=== PATIENT | female | born 1950 | race Caucasian/White ===

== ENCOUNTER 2020-09-01 19:42 | Inpatient (IN) ==
[2020-09-01] MEDS ORDERED: dexAMETHasone**PF** 10 MG/ML VIAL IV ONE (20:17)
[2020-09-01] MEDS ORDERED: ACETAMINOPHEN 500 MG TAB PO STA (20:17)
[2020-09-01] MEDS ORDERED: ALBUTEROL HFA 8 GM INHALER INH ONE (20:20)
[2020-09-01 20:38] LABS: Hematocrit (blood only) 38.3 % (37-47); Hemoglobin 13.2 g/dL (12.0-16.0); Immature Granulocytes # (auto) 0.01 K/uL (0.00-0.02); Immature Granulocytes % (auto) 0.3 %; Lymphocytes # (auto) 0.72 K/uL (1.2-3.4); Mean Corpuscular Hgb Conc 34.5 g/dL (32-36); Mean Corpuscular Volume 92.7 fL (80-100); Mean Platelet Volume 9.1 fL (7.4-10.4); Monocytes # (auto) 0.17 K/uL (0.11-0.59); Monocytes % (auto) 5.7 %; Platelet Count 176 K/uL (130-400); RDW Coefficient of Variation 14.1 % (11.5-14.5); Red Blood Count 4.13 M/uL (4.2-5.4)
[2020-09-01] MEDS ORDERED: KETOROLAC TROMETHAMINE 15 MG/ML VIAL IV STA (20:43)
[2020-09-01] MEDS ORDERED: SODIUM CHLORIDE 0.9% 1000ML 500 ML IV ONE (20:43)
--- NOTE | 2020-09-01 20:49 | Emergency Department Note ---
Impression & Plan Hypoxia, Fever, COVID-19, Pneumonia ED Provider Note NAME: REID OMER AGE: 69 SEX: F : 1950 ARRIVES VIA: Walk-In INFORMANT: [Patient] ED PROVIDER(S): [Momo Link MD] CHIEF COMPLAINT: Flulike symptoms. HISTORY OF PRESENT ILLNESS: The patient is a 69-year-old female who has had flulike symptoms for about a week and a half. Patient has had a headache that she rates as an 8/10. She has had some chills and has felt fatigued. As of late, she has developed some body aches. She has noticed a fever. Patient had Covid testing 3 days ago and was told she was positive. Today, her O2 saturation was noted to be low at home at around 88%. She was not short of breath. She came to be checked because of the low pulse ox value. Patient does have a history of asthma, she states that she is otherwise healthy. Her and son also have Covid. There has been no diarrhea. She states she did vomit one time with this illness but otherwise has been able to keep in fluids and food. She does not have any abdominal pain. She states that she would prefer to go home, she does not want to be admitted to the hospital. REVIEW OF SYSTEMS: See HPI for pertinent positives and negatives. A total of ten systems were reviewed and were otherwise negative. PMHx/PSHx: See Below SOCIAL HISTORY: See Below. PHYSICAL EXAM: GENERAL: Patient is in no acute distress. HEENT: No acute trauma, normocephalic atraumatic, mucous membranes moist, no nasal congestion, no scleral icterus. NECK: No stridor, no adenopathy, no meningismus, trachea is midline. LUNGS: Patient has crackles to both lower lungs especially on the left. There is no wheezing, no respiratory distress. She speaks in full sentences. HEART: Without murmurs gallops or rubs, regular rate and rhythm. ABDOMEN: Soft, nontender, bowel sounds positive, no hernias, no peritonitis. EXTREMITIES: No cyanosis or edema, full range of motion of all the joints without pain or difficulty, no signs for acute trauma. NEUROLOGIC: Oriented x 3, no acute motor or sensory deficits, no focal weakness. SKIN: No rash, no jaundice, no diaphoresis. DIFFERENTIAL DIAGNOSIS: Sepsis, UTI, pneumonia, metabolic abnormality, Covid pneumonia, electrolyte abnormalities, cardiac sources, cellulitis, UTI, bacteremia, intracerebral event, toxicologic etiology, neurologic event, as well as other pathologies. EMERGENCY DEPARTMENT COURSE/PROCEDURES: ECG: Indication was shortness of breath. The ECG shows a normal sinus rhythm with a rate of 90. There is a right bundle branch block. The QTc is 455. There is no ST elevation, no PVCs. Continuous Cardiac Monitoring: An order was placed for continuous cardiac monitoring. The monitor shows a rate of 87 with normal sinus rhythm. MEDICAL DECISION MAKING: There is a lower white blood cell count consistent with a viral infection. There is a normal hemoglobin and platelet count. No coagulopathy. No significant electrolyte abnormality or kidney failure. No worrisome liver enzyme elevation. ECG shows a sinus rhythm, no acute ischemia. Cardiac enzyme testing x1 is not consistent with acute cardiac injury. Chest film shows bilateral infiltrates consistent with Covid pneumonia. On exam, the patient did have crackles bilaterally. Her O2 saturation was low. At home, her saturation had been as low as 88%. The patient received IV saline, 500 cc. She was given IV Decadron, albuterol via MDI. She was given oral Tylenol and IV Toradol. The patient has a Covid pneumonia. She was hypoxic at home. She has worsened with her situation in just the last few days. I do think she qualifies for hospitalization. I did speak to the patient, I spoke with her family as well over the phone. I spoke with case management. The on-call hospitalist was consulted. Past Med/Surg History Medical History Asthma Social History Smoking Status: Never smoker Preferred Language: Hong Konger Feels Safe at Home: Yes Allergies Allergies Allergy/AdvReac Type Severity Reaction Status Date / Time No Known Allergies Allergy Unverified 09/01/20 20:53 Home Meds Home Medications Medication Instructions Recorded Confirmed acetaminophen [Tylenol] 650 mg PO QID PRN 09/01/20 09/01/20 atorvastatin 20 mg PO 3XWK 09/01/20 09/01/20 levothyroxine 50 mcg PO DAILY 09/01/20 09/01/20 paroxetine HCl 10 mg PO HS 09/01/20 09/01/20 Results & Data (ED) Vital Signs Vital Signs - 24 hr 09/01/20 19:53 09/01/20 20:14 09/01/20 20:20 Temperature 38.6 C H Temperature Source Temporal Artery Scan Pulse Rate 99 H 89 88 Pulse Rate from SpO2 Sensor 90 88 Respiratory Rate 20 19 23 Respiratory Effort / Characteristics Respiratory Depth Normal Blood Pressure 135/76 129/80 Blood Pressure Mean 95 96 Pulse Oximetry 92 93 93 Oxygen Delivery Method Room Air Sepsis New/Unexplained Change in Mental Status N/A Sepsis Action Taken by Nursing No Action Required 09/01/20 20:30 09/01/20 20:31 09/01/20 20:38 Temperature 38.6 C H Temperature Source Temporal Artery Scan Pulse Rate 90 87 Pulse Rate from SpO2 Sensor 90 88 Respiratory Rate 18 16 16 Respiratory Effort / Characteristics Non-Labored Respiratory Depth Normal Blood Pressure 124/77 Blood Pressure Mean 92 Pulse Oximetry 93 93 93 Oxygen Delivery Method Room Air Sepsis New/Unexplained Change in Mental Status Sepsis Action Taken by Assisted Medications Current Medication List: was personally reviewed by me Laboratory Data Attestation: I reviewed the patient's lab results. Result diagrams: 09/01/20 Unknown 09/01/20 Unknown Lab Results 09/01/20 09/01/20 09/01/20 Range/Units Unknown Unknown Unknown WBC 3.00 L (4.8-10.8) K/uL RBC 4.13 L (4.2-5.4) M/uL Hgb 13.2 (12.0-16.0) g/dL Hct 38.3 (37-47) % MCV 92.7 (80-100) fL MCH 32.0 (25-34) pg MCHC 34.5 (32-36) g/dL RDW Std Deviation 48.0 H (36.4-46.3) fL RDW Coeff of Casey 14.1 (11.5-14.5) % Plt Count 176 (130-400) K/uL MPV 9.1 (7.4-10.4) fL Immature Gran % (Auto) 0.3 % Neut % (Auto) 70.0 % Lymph % (Auto) 24.0 % Burt % (Auto) 5.7 % Eos % (Auto) 0.0 % Baso % (Auto) 0.0 % Neut # (Auto) 2.10 (1.4-6.5) K/uL Lymph # (Auto) 0.72 L (1.2-3.4) K/uL Burt # (Auto) 0.17 (0.11-0.59) K/uL Eos # (Auto) 0.00 (0-0.5) K/uL Baso # (Auto) 0.00 (0-0.2) K/uL Immature Gran # (Auto) 0.01 (0.00-0.02) K/uL PT 9.8 (9.0-12.0) Seconds INR 1.0 (0.9-1.1) APTT 29.9 (21.0-31.0) Seconds PTT Ratio 1.1 Sodium 138 (136-145) mmol/L Potassium 4.0 (3.5-5.1) mmol/L Chloride 106 (98-107) mmol/L Carbon Dioxide 28 (21-32) mmol/L Anion Gap 3.0 (3-11) BUN 14 (7-18) mg/dl Creatinine 0.73 (0.6-1.2) mg/dl Est Cr Clr Drug Dosing 67.4 ml/min Est GFR ( Amer) 96.7 Est GFR (Non-Af Amer) 83.4 BUN/Creatinine Ratio 18.7 (10-20) Glucose 104 H (70-99) mg/dl Calcium 8.6 (8.5-10.1) mg/dl Magnesium 2.0 (1.8-2.4) mg/dl Total Bilirubin 0.3 (0.2-1) mg/dl AST 44 H (15-37) U/L ALT 34 (12-78) U/L Alkaline Phosphatase 68 (45-117) U/L Troponin I < 0.015 (0-0.045) ng/ml Total Protein 6.7 (6.4-8.2) gm/dl Albumin 3.2 L (3.4-5.0) gm/dl Globulin 3.5 (2.5-4.0) gm/dl Albumin/Globulin Ratio 0.9 (0.9-2) Administered Medications Discontinued Medications Acetaminophen (Acetaminophen 500 Mg Tab) 1,000 mg PO NOW STA Stop: 09/01/20 20:18 Last Admin: 09/01/20 21:08 Dose: 1,000 mg Documented by: [id number] Albuterol (Albuterol Hfa 8 Gm Inhaler) 2 puffs INH NOW ONE Stop: 09/01/20 20:21 Last Admin: 09/01/20 21:08 Dose: 60 puffs Documented by: [id number] Dexamethasone Sodium Phosphate (DexamethasonePf 10 Mg/Ml Vial) 6 mg IV NOW ONE Stop: 09/01/20 20:18 Last Admin: 09/01/20 21:08 Dose: 6 mg Documented by: [id number] Sodium Chloride (Nss 1000ml) 500 mls @ 999 mls/hr IV .Q31M ONE Stop: 09/01/20 21:13 Last Admin: 09/01/20 21:08 Dose: 999 mls/hr Documented by: [id number] Ketorolac Tromethamine (Ketorolac Tromethamine 15 Mg/Ml Vial) 15 mg IV NOW STA Stop: 09/01/20 20:44 Last Admin: 09/01/20 21:08 Dose: 15 mg Documented by: [id number] Imaging Data Attestation: I personally reviewed and interpreted this imaging study as follows: My Impression: Chest x-ray: There are bilateral lower lobe infiltrates, somewhat worse on the left. There is no pneumothorax or CHF. Discharge Plan Visit Data Chief Complaint: Illness Stated Complaint: LOW OXYGEN LEVEL ED Provider: Momo Link Discharge Problem: Hypoxia, Fever, COVID-19, Pneumonia Patient Disposition: Admitted As Inpatient Condition: Fair Forms Stand Alone Forms: My [facility] Prescriptions Prescriptions: No Action acetaminophen [Tylenol] 325 mg Tablet 650 mg PO QID PRN (Reason: Pain) RF: 0 paroxetine HCl 10 mg tablet 10 mg PO HS RF: 0 atorvastatin 20 mg Tablet 20 mg PO 3XWK RF: 0 levothyroxine 50 mcg tablet 50 mcg PO DAILY RF: 0 Referrals Referrals: Karlie Juares MD [Primary Care Provider] - Discharge Problem: Fever Qualifiers: Fever type: unspecified Qualified Code(s): R50.9 - Fever, unspecified Pneumonia Qualifiers: Pneumonia type: due to unspecified organism Laterality: bilateral Lung location: unspecified part of lung Qualified Code(s): J18.9 - Pneumonia, unspecified organism
[2020-09-01 20:51] LABS: Partial Thromboplastin Ratio 1.1; Partial Thromboplastin Time 29.9 Seconds (21.0-31.0); Prothrombin Time 9.8 Seconds (9.0-12.0)
[2020-09-01 20:57] LABS: Alanine Aminotransferase 34 U/L (12-78); Albumin Level 3.2 gm/dl (3.4-5.0); Aspartate Aminotransferase 44 U/L (15-37); BUN Creatinine Ratio 18.7 (10-20); Blood Urea Nitrogen 14 mg/dl (7-18); Calcium 8.6 mg/dl (8.5-10.1); Carbon Dioxide 28 mmol/L (21-32); Chloride 106 mmol/L (98-107); Creatinine Clr Calc Pharmacy 67.4 ml/min; Est GFR (African American) 96.7; Est GFR (Non-African American) 83.4; Glucose 104 mg/dl (70-99); Sodium 138 mmol/L (136-145)
[2020-09-01 21:02] LABS: Albumin Globulin Ratio 0.9 (0.9-2); Alkaline Phosphatase 68 U/L (45-117); Bilirubin,Total 0.3 mg/dl (0.2-1); Globulin 3.5 gm/dl (2.5-4.0); Total Protein 6.7 gm/dl (6.4-8.2); Troponin I < 0.015 ng/ml (0-0.045)
--- NOTE | 2020-09-01 23:14 | History & Physical Report ---
Date of Service September 01, 2020 Assessment & Plan (1) Pneumonia due to COVID-19 virus: Pneumonia due to COVID-19 virus with hypoxia- In the ED patient had fever to a maximum of 101.5. In the ED patient had pulse oximetry to a low of 88% on room air. Chest x-ray with hazy infiltrate bilaterally suggesting multifocal viral pneumonia Dexamethasone 6 mg IV every morning Ventolin HFA 2 puffs every 2 hours as needed DuoNebs every 2 hours as needed Zinc sulfate 220 mg p.o. every morning Vitamin D 2000units p.o. every morning Acetaminophen 650 mg p.o. every 6 hours as needed mild pain or fever Nasal cannula oxygen, titrate to keep pulse ox 94 to 95% Lovenox 0.5 mg/ kilogram subcu every 12 hours Present on Admission?: Yes (2) Hypoxia: See above Present on Admission?: Yes (3) Fever: See above Present on Admission?: Yes (4) Hyperlipidemia: Continue atorvastatin 20 mg p.o. 3 times per week Present on Admission?: Yes (5) Hypothyroidism (acquired): Continue levothyroxine sodium 50 mcg daily Present on Admission?: Yes (6) Depression: Continue paroxetine 10 mg p.o. bedtime Present on Admission?: Yes History of Present Illness Chief Complaint: The patient presents to the emergency department with symptoms of severe headache, chills and generalized fatigue that began about 9 days ago, underwent COVID-19 testing that was positive 3 days ago, and confirmed in the ED this evening. Primary Care Provider: Karlie Juares MD The patient is a 69-year-old female with a past medical history including hyperlipidemia, hypothyroidism and depression, who presents with symptoms as noted above. She had been following her pulse ox at home, and it dropped to around 88% today, and was referred to the ED for further assessment. Allergies Allergy/AdvReac Type Severity Reaction Status Date / Time No Known Allergies Allergy Unverified 09/01/20 20:53 Home Medications Medication Instructions Recorded Confirmed Type acetaminophen [Tylenol] 650 mg PO QID PRN 09/01/20 09/01/20 History atorvastatin 20 mg PO 3XWK 09/01/20 09/01/20 History levothyroxine 50 mcg PO DAILY 09/01/20 09/01/20 History paroxetine HCl 10 mg PO HS 09/01/20 09/01/20 History Past Med/Surg History Medical History Asthma Social History Smoking Status: Never smoker Do You Dip or Chew Tobacco: No; Hx Alcohol Use: No Hx Substance Use: No Preferred Language: Tristanian Communication Ability: Effective Counter Tender Required: No Beliefs That Will Affect Care: None Current Living Situation: Spouse Other Information That Helps Us Care for You: No Feels Safe at Home: Yes Safety Concerns: Feels Safe At This Time Assistive Devices: Glasses Review of Systems Review of Systems: The patient denies chest pain, palpitations, shortness of breath, dyspnea on exertion, cough, lower extremity swelling, sore throat, fevers, chills, sweats, nausea, vomiting, diarrhea , constipation, abdominal pain, pelvic pain, blood in urine or stool, dysuria, urinary frequency or urgency, memory loss, loss of consciousness, rash, abnormal bruising or bleeding, imbalance, focal or generalized weakness, numbness or tingling in arms or legs, generalized arthralgias or myalgias, back or neck pain, or night sweats. The review of systems is otherwise negative other than for that already noted above, and at least 10 systems have been reviewed. Physical Exam Physical Exam: The patient is awake, alert and oriented 3, well developed and well nourished, normocephalic and atraumatic, lying in bed and in no acute distress. HEENT--PERRL, EOMI, mucous membranes and oropharynx dry. Neck--supple. No JVD. No bruits. Thyroid normal, trachea midline, no adenopathy. Heart--normal S1 and S2. No murmurs, rubs or gallops. Lungs--clear bilaterally, no respiratory distress, no accessory muscle use. Abdomen--normal bowel sounds and soft. Nontender. Nondistended, no hernias or masses, no organomegaly. Extremities--no cyanosis or clubbing. No edema. Neurologic--cranial nerves II through XII grossly intact. Rheumatologic--normal range of motion. Psychiatric--normal affect. Results & Data Results & Data ([facility]) Vital Signs (Past 12 Hours) Vital Signs Temp Pulse Resp BP Pulse Ox 09/01/20 22:54 94 09/01/20 22:53 78 22 88 L 09/01/20 22:31 81 21 91 09/01/20 22:30 83 26 H 89/54 L 90 09/01/20 22:15 84 21 94/66 L 89 L 09/01/20 22:13 101.5 F H 82 25 H 109/65 90 09/01/20 22:05 87 16 93 09/01/20 22:01 83 19 90 09/01/20 22:00 85 21 115/65 90 09/01/20 21:31 85 19 92 09/01/20 21:30 85 17 119/67 92 09/01/20 21:00 89 21 104/74 92 09/01/20 20:38 101.5 F H 16 93 09/01/20 20:31 87 16 93 09/01/20 20:30 90 18 124/77 93 09/01/20 20:20 88 23 93 09/01/20 20:14 89 19 129/80 93 09/01/20 19:53 101.5 F H 99 H 20 135/76 92 Laboratory Results Laboratory Results WBC 3.00 K/uL (4.8-10.8) L 09/01/20 Unknown RBC 4.13 M/uL (4.2-5.4) L 09/01/20 Unknown Hgb 13.2 g/dL (12.0-16.0) 09/01/20 Unknown Hct 38.3 % (37-47) 09/01/20 Unknown MCV 92.7 fL (80-100) 09/01/20 Unknown MCH 32.0 pg (25-34) 09/01/20 Unknown MCHC 34.5 g/dL (32-36) 09/01/20 Unknown RDW Std Deviation 48.0 fL (36.4-46.3) H 09/01/20 Unknown RDW Coeff of Casey 14.1 % (11.5-14.5) 09/01/20 Unknown Plt Count 176 K/uL (130-400) 09/01/20 Unknown MPV 9.1 fL (7.4-10.4) 09/01/20 Unknown Immature Gran % (Auto) 0.3 % 09/01/20 Unknown Neut % (Auto) 70.0 % 09/01/20 Unknown Lymph % (Auto) 24.0 % 09/01/20 Unknown Buchanan % (Auto) 5.7 % 09/01/20 Unknown Eos % (Auto) 0.0 % 09/01/20 Unknown Baso % (Auto) 0.0 % 09/01/20 Unknown Neut # (Auto) 2.10 K/uL (1.4-6.5) 09/01/20 Unknown Lymph # (Auto) 0.72 K/uL (1.2-3.4) L 09/01/20 Unknown Buchanan # (Auto) 0.17 K/uL (0.11-0.59) 09/01/20 Unknown Eos # (Auto) 0.00 K/uL (0-0.5) 09/01/20 Unknown Baso # (Auto) 0.00 K/uL (0-0.2) 09/01/20 Unknown Immature Gran # (Auto) 0.01 K/uL (0.00-0.02) 09/01/20 Unknown PT 9.8 Seconds (9.0-12.0) 09/01/20 Unknown INR 1.0 (0.9-1.1) 09/01/20 Unknown APTT 29.9 Seconds (21.0-31.0) 09/01/20 Unknown PTT Ratio 1.1 09/01/20 Unknown Sodium 138 mmol/L (136-145) 09/01/20 Unknown Potassium 4.0 mmol/L (3.5-5.1) 09/01/20 Unknown Chloride 106 mmol/L (98-107) 09/01/20 Unknown Carbon Dioxide 28 mmol/L (21-32) 09/01/20 Unknown Anion Gap 3.0 (3-11) 09/01/20 Unknown BUN 14 mg/dl (7-18) 09/01/20 Unknown Creatinine 0.73 mg/dl (0.6-1.2) 09/01/20 Unknown Est Cr Clr Drug Dosing 67.4 ml/min 09/01/20 Unknown Est GFR ( Amer) 96.7 09/01/20 Unknown Est GFR (Non-Af Amer) 83.4 09/01/20 Unknown BUN/Creatinine Ratio 18.7 (10-20) 09/01/20 Unknown Glucose 104 mg/dl (70-99) H 09/01/20 Unknown Lactate 0.6 mmol/L (0.4-2.0) 09/01/20 22:38 Calcium 8.6 mg/dl (8.5-10.1) 09/01/20 Unknown Magnesium 2.0 mg/dl (1.8-2.4) 09/01/20 Unknown Total Bilirubin 0.3 mg/dl (0.2-1) 09/01/20 Unknown AST 44 U/L (15-37) H 09/01/20 Unknown ALT 34 U/L (12-78) 09/01/20 Unknown Alkaline Phosphatase 68 U/L (45-117) 09/01/20 Unknown Troponin I < 0.015 ng/ml (0-0.045) 09/01/20 Unknown Total Protein 6.7 gm/dl (6.4-8.2) 09/01/20 Unknown Albumin 3.2 gm/dl (3.4-5.0) L 09/01/20 Unknown Globulin 3.5 gm/dl (2.5-4.0) 09/01/20 Unknown Albumin/Globulin Ratio 0.9 (0.9-2) 09/01/20 Unknown COVID-19 Eval Order [facility]Rsv at [facility] 09/01/20 22:08 SARS-CoV-2 (PCR) POSITIVE (Negative) A* 09/01/20 22:08 Influenza Type A (PCR) Negative (Neg) 09/01/20 22:08 Influenza Type B (PCR) Negative (Neg) 09/01/20 22:08 RSV (RT-PCR) Negative (Neg) 09/01/20 22:08 Code Status & VTE Plan Code Status Full code VTE Prophylaxis Plan VTE Prophylaxis will be ordered: Yes PG Care Time/CCT Total # of Minutes Spent Total Time Spent with Patient: Total time spent is greater than 50% in coordination of care (as documented) at patient's floor/unit and/or counseling patient: Coding Level of Care Code 47699 Initial Inpt Care Lvl 3 Diagnoses Pneumonia due to COVID-19 virus U07.1; J12.82 Hypoxia R09.02 Fever R50.9 Fever type: unspecified Hyperlipidemia E78.5 Hypothyroidism (acquired) E03.9 Depression F32.9 (1) Fever Fever type: unspecified Qualified Code(s): R50.9 - Fever, unspecified
[2020-09-01 23:19] LABS: Influenza A virus by PCR Negative (Neg); Influenza B virus by PCR Negative (Neg); RSV by PCR Negative (Neg)
[2020-09-01 23:43] LABS: SARS CoV2 RNA(COVID-19) InHosp POSITIVE (Negative)
[2020-09-02] MEDS ORDERED: ONDANSETRON INJ 2 MG/ML 2 ML VIAL IV PRN (00:47)
[2020-09-02] MEDS ORDERED: ALBUTEROL HFA 8 GM INHALER INH PRN (00:47)
[2020-09-02] MEDS ORDERED: ACETAMINOPHEN 325 MG TAB PO PRN (00:47)
[2020-09-02] MEDS: ENOXAPARIN INJ 40 MG/0.4 ML SYR SQ SCH ×3 (01:37→21:12)
[2020-09-02] MEDS: NSS + 20MEQ KCL 20 MEQ/1,000 ML BAG IV SCH ×2 (01:51→15:20)
[2020-09-02] MEDS: LEVOTHYROXINE SODIUM 50 MCG TABLET PO SCH (06:23)
[2020-09-02 07:56] LABS: Hematocrit (blood only) 35.9 % (37-47); Hemoglobin 12.1 g/dL (12.0-16.0); Immature Granulocytes # (auto) 0.02 K/uL (0.00-0.02); Immature Granulocytes % (auto) 0.7 %; Lymphocytes # (auto) 0.67 K/uL (1.2-3.4); Lymphocytes % (auto) 22.3 %; Mean Corpuscular Hemoglobin 31.6 pg (25-34); Mean Corpuscular Hgb Conc 33.7 g/dL (32-36); Mean Corpuscular Volume 93.7 fL (80-100); Mean Platelet Volume 8.8 fL (7.4-10.4); Monocytes % (auto) 3.3 %; Neutrophils # (auto) 2.21 K/uL (1.4-6.5); Neutrophils % (auto) 73.7 %; Platelet Count 182 K/uL (130-400); RDW Coefficient of Variation 14.1 % (11.5-14.5); RDW Standard Deviation 48.5 fL (36.4-46.3); Red Blood Count 3.83 M/uL (4.2-5.4)
[2020-09-02 08:34] LABS: Albumin Level 2.7 gm/dl (3.4-5.0); BUN Creatinine Ratio 20.1 (10-20); Calcium 8.7 mg/dl (8.5-10.1); Creatinine Clr Calc Pharmacy 69.8 ml/min; Est GFR (African American) 105.9; Est GFR (Non-African American) 91.4; Potassium 4.5 mmol/L (3.5-5.1)
[2020-09-02 08:36] LABS: Albumin Globulin Ratio 0.8 (0.9-2); Bilirubin,Total 0.2 mg/dl (0.2-1); Globulin 3.3 gm/dl (2.5-4.0)
[2020-09-02] MEDS: dexAMETHasone 6 MG in SYRINGE 0 ML IV SCH (08:59)
[2020-09-02] MEDS: CHOLECALCIFEROL 1,000 UNITS 25 MCG TAB PO SCH (08:59)
[2020-09-02] MEDS: ZINC SULFATE 220 MG CAPSULE PO SCH (08:59)
[2020-09-02] MEDS ORDERED: AZITHROMYCIN 500 MG in DEXTROSE 5% 250 ML IV SCH (09:00)
[2020-09-02 09:31] LABS: Appearance Urine Clear (Clear); Bacteria Urine Automated Negative (Negative); Bilirubin Urine Negative (Negative); Blood Urine Negative (Negative); Color Urine Yellow; Epithelial Cell Urine Auto 20-30 /lpf (0-5); Glucose Urine UA Negative (Negative); Ketones Urine Negative (Negative); Leukocyte Esterase Urine Negative (Negative); Nitrite Urine Negative (Negative); Protein Urine Trace (Negative); RBC Urine Automated 0-4 /hpf (0-4); Specific Gravity Urine 1.022 (1.000-1.030); Urobilinogen Urine Negative (Negative); pH Urine 6.5 (4.5-7.5)
--- NOTE | 2020-09-02 09:40 | XRay Report ---
XR chest 1V portable HISTORY: SEPSIS COMPARISON: None. FINDINGS: There are patchy left basilar densities. The heart is top normal in size. No pleural effusi ons. No pneumothorax. There is mild central pulmonary vascular congestion without overt edema. IMPRESSION: Patchy left basilar densities which may represent atelectasis or pneumonia. ACT 112: Negative or not required by law. Electronically signed by: Mikey Adrian M.D. 09/02/2020 9:39 AM
[2020-09-02] MEDS: ACETAMINOPHEN 325 MG TAB PO PRN (11:49)
--- NOTE | 2020-09-02 14:31 | Hospitalist Progress Note ---
Date of Service September 02, 2020 Assessment & Plan (1) Pneumonia due to COVID-19 virus: Pneumonia due to COVID-19 virus with hypoxia- In the ED patient had fever to a maximum of 101.5. In the ED patient had pulse oximetry to a low of 88% on room air. Now improved and remains on 1LNC, improved, no SOB Chest x-ray with hazy infiltrate bilaterally suggesting multifocal viral pneumonia -continue Dexamethasone 6 mg IV every morning -she is outside the window for Remdesevir or convalescent plasma; does not meet criteria for Actemra -continue Ventolin HFA 2 puffs every 2 hours as needed -continue azitrho x 5 day course-change from IV to po Zinc sulfate 220 mg p.o. every morning Vitamin D 2000units p.o. every morning Acetaminophen 650 mg p.o. every 6 hours as needed prn mild pain or fever Nasal cannula oxygen, titrate to keep pulse ox >92, wean off as tolerated, may need 2 step prior to discharge Lovenox 0.5 mg/ kilogram subcu every 12 hours for DVT proph (2) Headache: 2/2 COVID-19. Completely resolves with tylenol no focal neuro deficits -continue tylenol prn dexamethasone may help too -dc IVFs (3) Hypoxia: See above, 2/2 COVID-19 PNA dexamethasone, bronchodilators encouraged OOB to chair, deep breathing continue supplemental O2 (4) Fever: See above, now resolved 2/2 COVID-19 UA neg treating for bacterial secondary infection with azithro x 5 day course BCx-NGTD (5) Hyperlipidemia: Continue atorvastatin 20 mg p.o. 3 times per week (6) Hypothyroidism (acquired): Continue levothyroxine sodium 50 mcg daily (7) Depression: Continue paroxetine 10 mg p.o. bedtime (8) RBBB: seen on ECG here, no old ECGs to compare to NSR on tele, troponin negative no further eval needed (9) DVT prophylaxis: SQ Lovenox high dose Dispo-continued stay but may be able ot be discharged on Thursday, may need 2 step prior to discharge Of note, her is also admitted here and she has a 14 yr old son at home who is by himself with neighbors and her adult son checking on him so needs to get home sooner rather than later Admission and Anticipated Discharge Date Admission Date: September 01, 2020 Subjective Reports feeling much improved since admission. Headache was present this AM and again this afternoon, but each time goes completely away with tylenol. It is located all across her forehead, is moderate in severity, not associated with phono/photophobia, no N/V. She is eating so much better today than the last 2 weeks. Denies SOB, has a mild cough. Is moving her bowels, no diarrhea, no trouble with urinating. Tele with NSR rates 60-70s Review of Systems 2 Review of Systems: All systems reviewed & are unremarkable except as noted in HPI & below Physical Exam Constitutional: WD/WN, vitals as above Eyes: PERRL, conjunctivae normal, anicteric sclerae ENMT: external ear and nose normal, oropharynx normal Neck: trachea midline, no thyromegaly Respiratory: normal respiratory effort, lungs clear to auscultation Cardiovascular: RRR, no murmur, no edema Chest (Breasts): Chest: normal inspection of chest Gastrointestinal (Abdomen): normal bowel sounds, soft, nontender, no hepatosplenomegaly Musculoskeletal: Extremities: extremities normal to inspection; no cyanosis a nd no clubbing Skin: no rashes, warm and dry Neurologic: moves all extremities and awake; no focal motor deficits Psychiatric: A+Ox3, euthymic affect Lymphatic: no lymphedema Results & Data Results & Data ([facility]) Vital Signs (Past 12 Hours) Vital Signs Temp Pulse Resp BP Pulse Ox Pulse Ox 09/02/20 12:19 93 09/02/20 11:08 36.9 C 79 16 107/67 91 09/02/20 07:47 36.2 C L 72 20 115/67 92 09/02/20 04:00 36.8 C 78 18 96/68 L 93 Laboratory Results 09/02/20 09/02/20 09/02/20 Range/Units 09:05 07:26 07:26 WBC (4.8-10.8) K/uL RBC (4.2-5.4) M/uL Hgb (12.0-16.0) g/dL Hct (37-47) % MCV (80-100) fL MCH (25-34) pg MCHC (32-36) g/dL RDW Std Deviation (36.4-46.3) fL RDW Coeff of Casey (11.5-14.5) % Plt Count (130-400) K/uL MPV (7.4-10.4) fL Immature Gran % (Auto) % Neut % (Auto) % Lymph % (Auto) % Carbon % (Auto) % Eos % (Auto) % Baso % (Auto) % Neut # (Auto) (1.4-6.5) K/uL Lymph # (Auto) (1.2-3.4) K/uL Carbon # (Auto) (0.11-0.59) K/uL Eos # (Auto) (0-0.5) K/uL Baso # (Auto) (0-0.2) K/uL Immature Gran # (Auto) (0.00-0.02) K/uL Sodium 142 (136-145) mmol/L Potassium 4.5 (3.5-5.1) mmol/L Chloride 113 H (98-107) mmol/L Carbon Dioxide 24 (21-32) mmol/L Anion Gap 5.0 (3-11) BUN 13 (7-18) mg/dl Creatinine 0.62 (0.6-1.2) mg/dl Est Cr Clr Drug Dosing 69.8 ml/min Est GFR ( Amer) 105.9 Est GFR (Non-Af Amer) 91.4 BUN/Creatinine Ratio 20.1 H (10-20) Glucose 123 H (70-99) mg/dl Calcium 8.7 (8.5-10.1) mg/dl Total Bilirubin 0.2 (0.2-1) mg/dl AST 33 (15-37) U/L ALT 27 (12-78) U/L Alkaline Phosphatase 57 (45-117) U/L Total Protein 6.0 L (6.4-8.2) gm/dl Albumin 2.7 L (3.4-5.0) gm/dl Globulin 3.3 (2.5-4.0) gm/dl Albumin/Globulin Ratio 0.8 L (0.9-2) Urine Color Yellow Urine Appearance Clear (Clear) Urine pH 6.5 (4.5-7.5) Ur Specific Hosmer 1.022 (1.000-1.030) Urine Protein Trace H (Negative) Urine Glucose (UA) Negative (Negative) Urine Ketones Negative (Negative) Urine Blood Negative (Negative) Urine Nitrite Negative (Negative) Urine Bilirubin Negative (Negative) Urine Urobilinogen Negative (Negative) Ur Leukocyte Esterase Negative (Negative) Urine WBC (Auto) 1-5 (0-5) /hpf Urine RBC (Auto) 0-4 (0-4) /hpf U Hyaline Cast (Auto) 1-5 (0-5) /lpf U Epithel Cells (Auto) 20-30 H (0-5) /lpf Urine Bacteria (Auto) Negative (Negative) Hepatitis C Ab Screen Neg (Neg) 09/02/20 Range/Units 07:26 WBC 3.00 L (4.8-10.8) K/uL RBC 3.83 L (4.2-5.4) M/uL Hgb 12.1 (12.0-16.0) g/dL Hct 35.9 L (37-47) % MCV 93.7 (80-100) fL MCH 31.6 (25-34) pg MCHC 33.7 (32-36) g/dL RDW Std Deviation 48.5 H (36.4-46.3) fL RDW Coeff of Casey 14.1 (11.5-14.5) % Plt Count 182 (130-400) K/uL MPV 8.8 (7.4-10.4) fL Immature Gran % (Auto) 0.7 % Neut % (Auto) 73.7 % Lymph % (Auto) 22.3 % Carbon % (Auto) 3.3 % Eos % (Auto) 0.0 % Baso % (Auto) 0.0 % Neut # (Auto) 2.21 (1.4-6.5) K/uL Lymph # (Auto) 0.67 L (1.2-3.4) K/uL Carbon # (Auto) 0.10 L (0.11-0.59) K/uL Eos # (Auto) 0.00 (0-0.5) K/uL Baso # (Auto) 0.00 (0-0.2) K/uL Immature Gran # (Auto) 0.02 (0.00-0.02) K/uL Sodium (136-145) mmol/L Potassium (3.5-5.1) mmol/L Chloride (98-107) mmol/L Carbon Dioxide (21-32) mmol/L Anion Gap (3-11) BUN (7-18) mg/dl Creatinine (0.6-1.2) mg/dl Est Cr Clr Drug Dosing ml/min Est GFR ( Amer) Est GFR (Non-Af Amer) BUN/Creatinine Ratio (10-20) Glucose (70-99) mg/dl Calcium (8.5-10.1) mg/dl Total Bilirubin (0.2-1) mg/dl AST (15-37) U/L ALT (12-78) U/L Alkaline Phosphatase (45-117) U/L Total Protein (6.4-8.2) gm/dl Albumin (3.4-5.0) gm/dl Globulin (2.5-4.0) gm/dl Albumin/Globulin Ratio (0.9-2) Urine Color Urine Appearance (Clear) Urine pH (4.5-7.5) Ur Specific Hosmer (1.000-1.030) Urine Protein (Negative) Urine Glucose (UA) (Negative) Urine Ketones (Negative) Urine Blood (Negative) Urine Nitrite (Negative) Urine Bilirubin (Negative) Urine Urobilinogen (Negative) Ur Leukocyte Esterase (Negative) Urine WBC (Auto) (0-5) /hpf Urine RBC (Auto) (0-4) /hpf U Hyaline Cast (Auto) (0-5) /lpf U Epithel Cells (Auto) (0-5) /lpf Urine Bacteria (Auto) (Negative) Hepatitis C Ab Screen (Neg) PG Care Time/CCT Total # of Minutes Spent Total Time Spent with Patient: Total time spent is greater than 50% in coordination of care (as documented) at patient's floor/unit and/or counseling patient: Coding Level of Care Code 96684 Subseq Hosp Care Lvl 3 Diagnoses Pneumonia due to COVID-19 virus U07.1; J12.82 Headache R51.9 Hypoxia R09.02 Fever R50.9 Fever type: unspecified Hyperlipidemia E78.5 Hypothyroidism (acquired) E03.9 Depression F32.9 RBBB I45.10 DVT prophylaxis Z29.9 (1) Fever Fever type: unspecified Qualified Code(s): R50.9 - Fever, unspecified
--- NOTE | 2020-09-02 15:14 | Electrocardiogram Report ---
Test Reason : Blood Pressure : / mmHG Vent. Rate : 090 BPM Atrial Rate : 090 BPM P-R Int : 180 ms QRS Dur : 120 ms QT Int : 372 ms P-R-T Axes : 040 -24 020 degrees QTc Int : 455 ms Normal sinus rhythm Low voltage QRS Right bundle branch block Abnormal ECG No previous ECGs available Confirmed by Koko King ([id number]) on 09/02/2020 3:13:58 PM Referred By: REFERRED SELF Confirmed By:Koko King
[2020-09-02] MEDS ORDERED: PARoxetine HCL 10 MG TAB PO SCH (21:00)
[2020-09-02] MEDS ORDERED: ENOXAPARIN INJ 30 MG/0.3 ML SYR SQ SCH (21:00)
[2020-09-03] MEDS: LEVOTHYROXINE SODIUM 50 MCG TABLET PO SCH (05:29)
[2020-09-03 07:07] LABS: Hematocrit (blood only) 34.1 % (37-47); Hemoglobin 11.2 g/dL (12.0-16.0); Immature Granulocytes # (auto) 0.02 K/uL (0.00-0.02); Immature Granulocytes % (auto) 0.4 %; Lymphocytes # (auto) 1.29 K/uL (1.2-3.4); Lymphocytes % (auto) 28.2 %; Mean Corpuscular Hemoglobin 31.4 pg (25-34); Mean Corpuscular Hgb Conc 32.8 g/dL (32-36); Mean Corpuscular Volume 95.5 fL (80-100); Monocytes # (auto) 0.39 K/uL (0.11-0.59); Monocytes % (auto) 8.5 %; Neutrophils # (auto) 2.88 K/uL (1.4-6.5); Neutrophils % (auto) 62.9 %; Platelet Count 197 K/uL (130-400); RDW Coefficient of Variation 14.2 % (11.5-14.5); RDW Standard Deviation 49.7 fL (36.4-46.3); Red Blood Count 3.57 M/uL (4.2-5.4); White Blood Count 4.58 K/uL (4.8-10.8)
[2020-09-03 07:40] LABS: Albumin Globulin Ratio 0.8 (0.9-2); Albumin Level 2.6 gm/dl (3.4-5.0); BUN Creatinine Ratio 25.6 (10-20); Bilirubin,Total 0.3 mg/dl (0.2-1); Calcium 8.2 mg/dl (8.5-10.1); Creatinine Clr Calc Pharmacy 76.3 ml/min; Est GFR (African American) 104.8; Est GFR (Non-African American) 90.4; Globulin 3.2 gm/dl (2.5-4.0); Potassium 3.7 mmol/L (3.5-5.1); Total Protein 5.8 gm/dl (6.4-8.2)
[2020-09-03] MEDS ORDERED: ATORVASTATIN 20 MG TAB PO SCH (09:00)
[2020-09-03] MEDS ORDERED: AZITHROMYCIN 250 MG TAB PO SCH (09:00)
[2020-09-03] MEDS: ACETAMINOPHEN 325 MG TAB PO PRN (09:28)
[2020-09-03] MEDS: dexAMETHasone 6 MG in SYRINGE 0 ML IV SCH (09:28)
[2020-09-03] MEDS: ENOXAPARIN INJ 40 MG/0.4 ML SYR SQ SCH (09:29)
[2020-09-03] MEDS: ZINC SULFATE 220 MG CAPSULE PO SCH (09:29)
[2020-09-03] MEDS: CHOLECALCIFEROL 1,000 UNITS 25 MCG TAB PO SCH (09:29)
--- NOTE | 2020-09-03 11:16 | XRay Report ---
XR chest 1V portable CLINICAL HISTORY: COVID follow up COMPARISON STUDY: Chest radiograph September 01, 2020. FINDINGS: Lung volumes are within normal limits. There is no pneumothorax or pleural effusion. Left b asilar airspace opacity persists. Minimal left midlung opacity is again noted. Cardiomediastinal silh ouette is stable. IMPRESSION: No significant change in left lung airspace opacities which favor an infectious process. ACT 112: Negative or not required by law. Electronically signed by: Dustin Chinchilla M.D. 09/03/2020 11:15 AM
--- NOTE | 2020-09-03 11:39 | Discharge Summary ---
Date of Service September 03, 2020 Admission HPI Per Admitting Provider The patient is a 69-year-old female with a past medical history including hyperlipidemia, hypothyroidism and depression, who presents with symptoms as noted above. She had been following her pulse ox at home, and it dropped to around 88% today, and was referred to the ED for further assessment. Principal Diagnosis COVID 19 pneumonia Discharge Exam Constitutional WD/WN, vitals as above Neck trachea midline, no thyromegaly Respiratory normal respiratory effort, lungs clear to auscultation Cardiovascular RRR, no murmur, no edema Gastrointestinal (Abdomen) normal bowel sounds, soft, nontender, no hepatosplenomegaly Musculoskeletal no cyanosis or clubbing, extremities motor strength 5/5 Skin no rashes, warm and dry Neurologic patellar DTR's 2+ bilat, sensation intact and PERRL, EOMI, accommodation nl, no face palsy, no dysarthria Psychiatric A+Ox3, euthymic affect Lymphatic no cervical or axillary lymphadenopathy Discharge Data Allergies Allergy/AdvReac Type Severity Reaction Status Date / Time No Known Allergies Allergy Unverified 09/01/20 20:53 Consultations 09/01/20 21:41 ED Decision to Admit Stat Hospital Course (1) Pneumonia due to COVID-19 virus: Pneumonia due to COVID-19 virus with hypoxia- In the ED patient had fever to a maximum of 101.5. In the ED patient had pulse oximetry to a low of 88% on room air Chest x-ray with hazy infiltrate bilaterally suggesting multifocal viral pneumonia patient responded well to dexamethasone, Zinc, Zithromax titrated down to room air at rest, no distress performed 2 step test on the day of discharge, no oxygen needed at rest or on exertion eating and drinking well, no fever, no GI symptoms, she feels strong enough to go home will send on dexamethasone 6mg PO daily for 4 more days 2 more days of Zithromax stay well rested, well hydrated, she knows to monitor for any worsening symptoms (2) Headache: 2/2 COVID-19. Completely resolves with tylenol no focal neuro deficits -continue tylenol prn (3) Hypoxia: See above, 2/2 COVID-19 PNA dexamethasone, bronchodilators resolved, no oxygen needed with 2 step testing (4) Hyperlipidemia: Continue atorvastatin 20 mg p.o. 3 times per week (5) Hypothyroidism (acquired): Continue levothyroxine sodium 50 mcg daily (6) Depression: Continue paroxetine 10 mg p.o. bedtime (7) RBBB: seen on ECG here, no old ECGs to compare to NSR on tele, troponin negative no further eval needed Total Time Total Time Spent Total Time Spent (In Minutes): 32 Total Time Includes: Examination of the Patient, Discharge Planning and Medication Reconciliation Discharge Plan Discharge Items Patient Disposition: Home - Self-Care Reason For Visit: COVID-19 PNEUMONIA WITH HYPOXIA Discharge Diagnosis: COVID 19 pneumonia Acute hypoxia, resolved Condition on Discharge: Good Goals: complete short course of steroids and antibiotics stay well nourished, well rested, well hydrated Activity: Resume your previous activity Non-emergency contact: Primary Care Provider Call non-emergency contact if: you have any medication questions and your symptoms worsen Follow-up/Referrals: Karlie Ahmadi MD [Primary Care Provider] - 09/07/20 10:20 am (one week DR AHMADI OFFICE WILL CALL YOU FOR THIS PHONE APT.) Diet: Regular Addtl Attending Provider Instructions: Medications: DEXAMETHASONE: 6mg daily for 4 more days, next dose due tomorrow morning AZITHROMYCIN: 250mg daily for 2 more days, next dose due tomorrow morning take zinc 220mg and vitamin D 2000 units daily for immune support for the next 10 days stay well nourished and well hydrated, get rest you are no longer quarantined as you are more than 10 days from onset of symptoms you do not need oxygen based on testing today, you should continue to remain stable Pending Studies at Discharge: No Stand-Alone Forms: My [facility], Smoking Cessation Medications and DC Order Prescriptions: New cholecalciferol (vitamin D3) 25 mcg (1,000 unit) Capsule 2,000 unit PO QAM 10 Days RF: 0 zinc sulfate [Orazinc] 50 mg zinc (220 mg) Capsule 220 mg PO QAM 10 Days Qty: 44 RF: 0 dexamethasone 4 mg tablet 6 mg PO DAILY 4 Days Qty: 6 RF: 0 Continued acetaminophen [Tylenol] 325 mg Tablet 650 mg PO QID PRN (Reason: Pain) RF: 0 paroxetine HCl 10 mg tablet 10 mg PO HS RF: 0 atorvastatin 20 mg Tablet 20 mg PO 3XWK RF: 0 levothyroxine 50 mcg tablet 50 mcg PO DAILY RF: 0 Discharge Orders: Discharge Order (Routine); Ordered 09/03/20 Ordered By: Gagandeep Schmidt Admission Data Admit Date/Time: 09/01/20 23:05 Attending Provider: Gagandeep Schmidt Admit Provider: Spenser Mccartney Primary Care Provider: Karlie Ahmadi Other Providers: Spenser Mccartney Other Interventions: Discharge Summary Assessment (RN) Last Done: 09/03/20 12:41 Coding Level of Care Code D/C Day Management >30 mins Diagnoses Pneumonia due to COVID-19 virus U07.1; J12.82 Headache R51.9 Hypoxia R09.02 Hyperlipidemia E78.5 Hypothyroidism (acquired) E03.9 Depression F32.9 RBBB I45.10
== END 2020-09-03 13:20 | disposition home or self-care (01) | DRG 177 ==
LOC: ED 19:42 → SUATTDRO 23:05 → 2E 23:05